=== PATIENT | male | born 1975 | race Caucasian/White ===

== ENCOUNTER 2023-07-11 07:25 | Outpatient (REF) | payer OTHER, SELFPAY ==
--- NOTE | ~2023-07-11 | MR_ITS ---
EXAMINATION: MR LUMBAR SPINE WITHOUT CONTRAST CLINICAL INFORMATION: Chronic low back pain. COMPARISON: There are no prior studies available for comparison at time of dictation. TECHNIQUE: MRI of the lumbar spine was obtained using routine sequences without contrast. FINDINGS: VERTEBRAL BODIES AND PARASPINAL STRUCTURES: There are mild retrolistheses of L4 on L5 and L5 on S1. There is narrowing of intervertebral disc height with loss of signal from the discs at L4-L5 and L5-S1. Vertebral body heights are maintained, and no fractures are demonstrated. There are degenerative endplate contour changes with mild edematous signal toward the right at L5-S1. Overall, marrow signal is homogenous. The infrarenal abdominal aorta has a caliber of 2.4 cm just proximal to the bifurcation. The visualized pelvic structures are unremarkable. CONUS MEDULLARIS AND CAUDA EQUINA: Normal, terminating at the level of T12-L1. The lower thoracic spinal cord appears normal. The cauda equina nerve roots and filum terminale appear normal. SPINAL LEVELS: L1-L2: There is mild bilateral facet arthropathy. Disc contour is normal. There is no central stenosis or foraminal narrowing. L2-L3: There is mild bilateral facet arthropathy. Disc contour is normal. There is no central stenosis or foraminal narrowing. L3-L4: There is mild bilateral facet arthropathy. Disc contour is normal. There is no central stenosis or foraminal narrowing. L4-L5: There is mild to moderate bilateral facet arthropathy with ligamenta flava hypertrophy. There is a central and right-sided disc protrusion with an annular fissure which mildly narrows the right subarticular recess. There is no central stenosis. There is no foraminal nerve root impingement. L5-S1: There is moderate bilateral facet arthropathy with ligamenta flava hypertrophy and facet joint effusions. There is a posterior disc protrusion, with extruded components centrally and to the left of midline with distortion of the ventral thecal sac, but there is no central stenosis. There is impingement on the traversing S1 nerve roots, more prominently on the left. There is a small right foraminal disc protrusion with impingement on the exiting right L5 nerve root. MR/MR lumbar spine wo con IMPRESSION: 1. At L5-S1 there is facet arthropathy and there is a posterior disc protrusion/extrusion with impingement on the traversing S1 nerve roots, more prominently on the left. A small right foraminal disc protrusion impinges on the exiting right L5 nerve root. 2. At L4-L5 there is facet arthropathy and there is a central and right-sided disc protrusion with narrowing of the right subarticular recess. There is no central stenosis or foraminal nerve root impingement. 3. The infrarenal abdominal aorta has a caliber of 2.4 cm. Based on published guidelines in J Am Malu Radiol 2013; 10(10):789-794 and J Vasc Surg. 2018; 67:2-77, the recommendation for an abdominal aorta <2.6 cm in diameter is no follow-up is recommended.
== END 2023-07-11 07:26 | disposition home or self-care (01) ==
LOC: HO.MRI 07:25
PROVIDERS: PCP Family Medicine Sports Medicine; Visit Provider Family Medicine Sports Medicine
DX: M54.50 Low back pain, unspecified (principal); D64.9 Anemia, unspecified
CPT/HCPCS: 72148